=== PATIENT | female | born 1990 | race Two or more races ===

== ENCOUNTER 2023-08-14 22:47 | Emergency (ER) | payer BC ==
[~2023-08-14] VITALS: Ht 175.3 cm; Wt 52.2 kg
[2023-08-15] MEDS ORDERED: ZOLOFT25 MG (00:25)
[2023-08-15] MEDS ORDERED: SINGULAIR 5MG5 MG (00:25)
[2023-08-15] MEDS ORDERED: SERTRALINE20 MG/1 ML (00:25)
[2023-08-15 03:45] LABS: HEMATOCRIT 35.7 % (36.0-45.00); MEAN CELL VOLUME 89.2 fL (80.00-100.00); MEAN CORPUSCULAR HGB CONC 33.6 g/dl (32.0-36.0); PLATELET COUNT 231 K/uL (150-450); RED CELL DISTRIBUTION WIDTH 13.7 % (11.5-14.5)
[2023-08-15 04:10] LABS: CALCIUM 8.2 mg/dL (8.5-10.1); CREATININE SERUM 0.67 mg/dL (0.55-1.02); GFR 102.66; POTASSIUM 3.55 mEq/L (3.5-5.1)
[2023-08-15 06:28] LABS: PH,URINE 5.5 (5.0-8.0); URINE APPEARANCE Clear; URINE BILIRRUBIN Negative (NEGATIVE); URINE BLOOD Negative; URINE COLOR Yellow; URINE GLUCOSE Negative (NEGATIVE); URINE LEUKOCYTE Negative; URINE NITRATE Negative; URINE PROTEIN Negative (NEGATIVE); URINE UROBILINOGEN 0.2 E.U./dl
[2023-08-15 06:33] LABS: URINE BACTERIA 2227.4 uL (0.0-1933); URINE EPITHELIAL CELLS 21.4 uL (0.0-38.8); URINE RBC 5.6 uL (0.0-20.8)
[2023-08-15] MEDS ORDERED: ONDANSETRON ODT4 MG PO (07:51)
[2023-08-15] MEDS ORDERED: INTESTINEX680 M1 PO (07:51)
[2023-08-15] MEDS ORDERED: CIPRO500 MG PO (07:51)
[2023-08-15] MEDS ORDERED: PEPCID40 MG PO (07:51)
[2023-08-15] MEDS ORDERED: FLUCONAZOLE150 MG PO (07:54)
== END 2023-08-15 08:22 ==
LOC: ER 22:48
PROVIDERS: General Practice
DX: R11.11 Vomiting without nausea (principal); R19.7 Diarrhea, unspecified